=== PATIENT | female | born 1940 | race American Indian/Alaskan Native ===

== ENCOUNTER 2017-11-20 21:22 | Emergency (ER) | payer MEDICARE, MEDICAID ==
[~2017-11-20] VITALS: Ht 162.6 cm; Wt 61.0 kg
[~2017-11-20 21:22] MED LIST: ALIS1TAB PO; ASPI-518 PO; ATOR10TA PO; BENAZEPRIL; CALC-1232 GT; CELE200C PO; METO-411 PO; SIMVASTATIN; [UNRECOGNIZED DRUG - CODE] PO
[2017-11-20 21:29] VITALS: BP 170/88
== END 2017-11-20 22:56 | disposition left against medical advice (07) ==
LOC: ER 21:38
DX: M54.9 Dorsalgia, unspecified (principal); Z53.21 Procedure and treatment not carried out due to patient leaving prior to being seen by health care provider